=== PATIENT | male | born 1980 | race Hispanic/Latino ===

== ENCOUNTER 2018-07-07 19:06 | Emergency (ER) | payer SELFPAY ==
[2018-07-07 19:32] VITALS: BP 126/93
--- NOTE | 2018-07-07 20:55 | XRay Report ---
FINAL REPORT EXAM: XR FEMUR BILAT 2+V HISTORY: leg injury TECHNIQUE: AP and lateral views of the bilateral femurs, 9 views total PRIORS: None. FINDINGS: Right femur: On the lateral view centered at the lower femur only, there is a subtle posterior cortical step-off and a sclerotic line that extends part way through the distal femoral diaphysis. The right hip joint is normally aligned. There is remodeling of the right femoral head and neck with thickening of the femoral neck, a small osseous bump and flattening along femoral head/neck junction. The bones are normally aligned and mineralized. The soft tissues are unremarkable. Left femur: The left hip joint is normally aligned. There is remodeling of the left femoral head and neck with thickening of the femoral neck, a small osseous bump and flattening along femoral head/neck junction. The bones are normally aligned and mineralized. There is no evidence of fracture or subluxation. The soft tissues are unremarkable. IMPRESSION: 1. Findings are suspicious for a stress fracture of the distal posterior right femoral diaphysis 2. Degenerative changes of the bilateral hips. Consider bilateral femoral acetabular impingement.
--- NOTE | 2018-07-07 21:14 | XRay Report ---
FINAL REPORT EXAM: XR HAND 3+V RT HISTORY: hand injury TECHNIQUE: Frontal, lateral, oblique views right hand Comparison: None FINDINGS: There is no evidence of fracture or subluxation. The joint spaces are maintained. There is soft tissue swelling on the dorsal aspect of the hand. IMPRESSION: 1. Soft tissue swelling without plain film evidence of fracture or subluxation.
[2018-07-07] MEDS ORDERED: PERCOCET 5/325 PO ONE (22:15)
--- NOTE | 2018-07-07 22:24 | Emergency Department Report ---
HPI - General Chief Complaint: Extremity Injury, Lower Time Seen by Provider: 07/07/18 22:09 - HPI HPI: Room 25 The patient is a 37-year-old male presenting with a chief complaint of pain after being struck by a bowl. The patient states while at work a full got loose out of his pain and ran into the patient pinning him against the wall. The patient states the bull initially push the door to his pin open into the patient. Patient complains of pain in bilateral lower extremities and right thumb. Patient denies any other forms of pain. Injury occurred yesterday Location: [See above] Duration: Constant since yesterday Quality: Pain Severity: 07/24 Modifying factors: [see above] Context: [see above] Mode of transportation: [not driving] ED Past Medical Hx - Past Medical History Previous Medical History?: Yes - Surgical History Past Surgical History?: Yes Additional Surgical History: 7 broken vertebrae - Family History Family history: no significant - Social History Smoking Status: Current Every Day Smoker (1 pack per day) Substance Use Type: None (denies illicit drug use) - Medications Home Medications: Home Medications Medication Instructions Recorded Confirmed Last Taken Type HYDROcodone/APAP 5-325 [[place] 1 - 2 each PO Q6HR PRN #10 tablet 07/08/18 Unknown Rx 5/325] Ibuprofen [Motrin 800 MG tab] 800 mg PO Q8HR PRN #20 tablet 07/08/18 Unknown Rx ED Review of Systems ROS: Stated complaint: STOMPED BY A BULL LEG PAIN BILAT Other details as noted in HPI Constitutional: no symptoms reported Eyes: denies: eye pain ENT: denies: throat pain Respiratory: no symptoms reported Cardiovascular: denies: chest pain Endocrine: no symptoms reported Gastrointestinal: denies: abdominal pain Genitourinary: denies: dysuria Musculoskeletal: myalgia. denies: back pain Skin: other (right hip abrasion) Neurological: denies: headache Physical Exam - Physical Exam Vital Signs: Vital Signs 07/07/18 19:27 Temperature 98.1 F Pulse Rate 76 Respiratory 16 Rate Blood Pressure 126/93 O2 Sat by Pulse 98 Oximetry Physical Exam: GENERAL: The patient is well-developed well-nourished male lying on stretcher not appearing to be in acute distress. [] HEENT: Normocephalic. Atraumatic. Extraocular motions are intact. Patient has moist mucous membranes. NECK: Supple. Trachea midline CHEST/LUNGS: Clear to auscultation. There is no respiratory distress noted. HEART/CARDIOVASCULAR: Regular. There is no tachycardia. There is no gallop rub or murmur. ABDOMEN: Abdomen is soft, nontender. Patient has normal bowel sounds. There is no abdominal distention. SKIN: There is no rash. There is no edema. There is no diaphoresis. NEURO: The patient is awake, alert, and oriented. The patient is cooperative. The patient has normal speech. 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 There is no limitation range of motion. ED Course Vital Signs 07/07/18 19:27 Temperature 98.1 F Pulse Rate 76 Respiratory 16 Rate Blood Pressure 126/93 O2 Sat by Pulse 98 Oximetry ED Medical Decision Making - Radiology Data Radiology results: report reviewed (CT right femur, bilateral femur x-rays, right hand x-ray), image reviewed (bilateral femur x-ray, right hand x-ray, CT right femur, left tib-fib x-ray) interpreted by me: Right hand x-ray-no definite fracture seen Bilateral femur a-[id number] discontinuity of the cortex posteriorly on the right femur Left tib-fib x-ray-no acute fracture [facility] [address] [place] [address] XRay Report Signed Patient: MONICA ORTEGA MR#: [id number] : 1980 Acct:[id number] Age/Sex: 37 / M ADM Date: 07/07/18 Loc: ED Attending Dr: Ordering Physician: MILLI AMOS MD Date of Service: 07/07/18 Procedure(s): XR hand 3+V RT Accession Number(s): [id number] cc: MILLI AMOS MD Fluoro Time In Minutes: FINAL REPORT EXAM: XR HAND 3+V RT HISTORY: hand injury TECHNIQUE: Frontal, lateral, oblique views right hand Comparison: None FINDINGS: There is no evidence of fracture or subluxation. The joint spaces are maintained. There is soft tissue swelling on the dorsal aspect of the hand. IMPRESSION: 1. Soft tissue swelling without plain film evidence of fracture or subluxation. Transcribed By: ED Dictated By: ARMANDO ISABEL MD Electronically Authenticated By: ARMANDO ISABEL MD Signed Date/Time: 07/07/182111 DD/ 11 TD/TT: 07/07/182111 [address] [address] XRay Report Signed Patient: MONICA ORTEGA MR#: [id number] : 1980 Acct:[id number] Age/Sex: 37 / M ADM Date: 07/07/18 Loc: ED Attending Dr: Ordering Physician: MILLI AMOS MD Date of Service: 07/07/18 Procedure(s): XR femur BILAT 2+V Accession Number(s): [id number] cc: ED MD BETTE Fluoro Time In Minutes: FINAL REPORT EXAM: XR FEMUR BILAT 2+V HISTORY: leg injury TECHNIQUE: AP and lateral views of the bilateral femurs, 9 views total PRIORS: None. FINDINGS: Right femur: On the lateral view centered at the lower femur only, there is a subtle posterior cortical step-off and a sclerotic line that extends part way through the distal femoral diaphysis. The right hip joint is normally aligned. There is remodeling of the right femoral head and neck with thickening of the femoral neck, a small osseous bump and flattening along femoral head/neck junction. The bones are normally aligned and mineralized. The soft tissues are unremarkable. Left femur: The left hip joint is normally aligned. There is remodeling of the left femoral head and neck with thickening of the femoral neck, a small osseous bump and flattening along femoral head/neck junction. The bones are normally aligned and mineralized. There is no evidence of fracture or subluxation. The soft tissues are unremarkable. IMPRESSION: 1. Findings are suspicious for a stress fracture of the distal posterior right femoral diaphysis 2. Degenerative changes of the bilateral hips. Consider bilateral femoral acetabular impingement. Transcribed By: MLG Dictated By: MIESHA CARIAS MD Electronically Authenticated By: MIESHA CARIAS MD Signed Date/Time: 07/07/182053 DD/ 53 TD/TT: 07/07/182053 [address] [place] [address] Cat Scan Report Signed Patient: MONICA ORTEGA MR#: [id number] : 1980 Acct:[id number] Age/Sex: 37 / M ADM Date: 07/07/18 Loc: ED Attending Dr: Ordering Physician: MANSOOR HENDRICKSON MD Date of Service: 07/07/18 Procedure(s): CT lower extremity RT wo con Accession Number(s): [id number] cc: MANSOOR HENDRICKSON MD FINAL REPORT EXAM: CT LOWER EXTREMITY RT WO CON HISTORY: struck by a bull. Possible stress fracture distal TECHNIQUE: Helical CT was performed of the right femur in the axial plane. Images are reconstructed in the sagittal and coronal planes. PRIORS: Radiographs performed earlier on the same day FINDINGS: There is no corresponding abnormality to the radiographic finding in the distal posterior femoral diaphysis. The femur appears normal. The soft tissues appear normal. IMPRESSION: Normal CT of the right femur. No evidence of acute fracture. Radiographic finding was likely artifactual. Transcribed By: BHUPINDER Dictated By: MIESHA CARIAS MD Electronically Authenticated By: MIESHA CARIAS MD Signed Date/Time: 07/08/1821 DD/ TD/TT: 07/08/1821 - Differential Diagnosis lower extremity fracture Critical care attestation.: If time is entered above; I have spent that time in minutes in the direct care of this critically ill patient, excluding procedure time. ED Disposition Clinical Impression: Contusion of right hip, Contusion of left leg, Contusion of right leg Disposition: TO HOME OR SELFCARE Is pt being admited?: No Does the pt Need Aspirin: No Condition: Stable Additional Instructions: Return to the emergency department immediately should you develop worsening symptoms, fever, inability to tolerate food or liquid or any other concerns. Prescriptions: HYDROcodone/APAP 5-325 [[place] 5/325] 1 - 2 each PO Q6HR PRN #10 tablet PRN Reason: Pain Ibuprofen [Motrin 800 MG tab] 800 mg PO Q8HR PRN #20 tablet PRN Reason: Pain , Severe (7-10) Referrals: PRIMARY CARE, [Primary Care Provider] - 3-5 Days Time of Disposition: 01:10
--- NOTE | 2018-07-08 00:02 | XRay Report ---
FINAL REPORT EXAM: XR TIBIA FIBULA 2V LT HISTORY: pain after being struck by a bull TECHNIQUE: AP and lateral views of the right tibia fibula PRIORS: None. FINDINGS: The bones are normally aligned and mineralized. The joint spaces are well-preserved. There is no evidence of acute fracture. The soft tissues are unremarkable. IMPRESSION: No evidence of acute fracture or subluxation.
--- NOTE | 2018-07-08 00:22 | Cat Scan Report ---
FINAL REPORT EXAM: CT LOWER EXTREMITY RT WO CON HISTORY: struck by a bull. Possible stress fracture distal TECHNIQUE: Helical CT was performed of the right femur in the axial plane. Images are reconstructed in the sagittal and coronal planes. PRIORS: Radiographs performed earlier on the same day FINDINGS: There is no corresponding abnormality to the radiographic finding in the distal posterior femoral diaphysis. The femur appears normal. The soft tissues appear normal. IMPRESSION: Normal CT of the right femur. No evidence of acute fracture. Radiographic finding was likely artifactual.
--- NOTE | 2018-07-08 02:30 | XRay Report ---
FINAL REPORT EXAM: XR TIBIA FIBULA 2V LT HISTORY: pain after being run over by a bull TECHNIQUE: PRIORS: None. FINDINGS: The bones are normally aligned and mineralized. There is no evidence of fracture or subluxation. The soft tissues are unremarkable. IMPRESSION: No evidence of acute injury.
== END 2018-07-08 01:37 | disposition home or self-care (01) ==
LOC: ED 19:06
DX: S80.12XA Contusion of left lower leg, initial encounter (principal); S80.11XA Contusion of right lower leg, initial encounter; S70.01XA Contusion of right hip, initial encounter; F17.210 Nicotine dependence, cigarettes, uncomplicated; W55.22XA Struck by cow, initial encounter; Y93.89 Activity, other specified; Y99.0 Civilian activity done for income or pay; Y92.69 Other specified industrial and construction area as the place of occurrence of the external cause